=== PATIENT | male | born 1960 | race Caucasian/White ===

== ENCOUNTER 2020-04-10 13:49 | Emergency (ER) | payer OTHER, SELFPAY ==
--- NOTE | ~2020-04-10 | XR_ITS ---
EXAMINATION: XR ankle RT min 3V DATE: 04/10/2020 14:09 INDICATION: Right ankle pain and difficulty bearing weight post injury one day prior TECHNIQUE: Anteroposterior, oblique, mortise, and lateral views of the right ankle were obtained. COMPARISON: None. FINDINGS: Alignment is normal. No fracture. Joint spaces are well maintained. No ankle joint effusion. Diffus e soft tissue swelling about the right ankle. Likely small ankle joint effusion with increased densit y anterior to the tibiotalar joint line. Tiny enthesopathic ossicle at the distal Achilles tendon. IMPRESSION: 1. No acute osseous abnormality. Reviewed, dictated and finalized at location A.
[2020-04-10 14:01] VITALS: BP 160/87; PULSE 72; RESP 24; TEMP 36.9; O2SAT 98
--- NOTE | 2020-04-10 14:36 | ED.LOWEXIN ---
HPI - Extremity Injury (Lower) General Chief Complaint: Extremity Injury, Lower Stated Complaint: R/ankle pain Time Seen by Provider: 04/10/20 14:20 Source: patient and RN notes reviewed Mode of arrival: ambulatory Limitations: no limitations History of Present Illness HPI Narrative: Patient presents today complaining of pain to his right ankle. He jumped off a 1.5 foot high porch yesterday onto a sloped ground, twisting his ankle. He does report some intermittent tingling to the dorsum of the foot. Currently rates pain 9/10 and is been taking ibuprofen and Aleve and applying ice without relief. MD complaint: ankle injury Related Data Home Medications Medication Instructions Recorded Confirmed amlodipine 2.5 mg PO DAILY 04/10/20 04/10/20 atorvastatin 10 mg PO DAILY 04/10/20 04/10/20 furosemide 20 mg PO DAILY 04/10/20 04/10/20 hydralazine 10 mg PO BID 04/10/20 04/10/20 metoprolol succinate 25 mg PO DAILY 04/10/20 04/10/20 warfarin 6 mg PO DAILY 04/10/20 04/10/20 Allergies Allergy/AdvReac Type Severity Reaction Status Date / Time procaine Allergy Unknown HEART Verified 04/10/20 14:06 FLUTTERING Review of Systems Review of Systems: Narrative: CONSTITUTIONAL: Denies body aches, fever, chills, or sweats. EYES: Denies visual changes, redness, or discharge. ENT: Denies rhinorrhea, congestion, sore throat, or otalgia. CARDIOVASCULAR: Denies chest pain, palpitations, or edema. RESPIRATORY: Denies cough or dyspnea. GASTROINTESTINAL: Denies abdominal pain, nausea, vomiting, or diarrhea. GENITOURINARY: Denies dysuria or hematuria. SKIN: Denies rash, itching, or wounds. MUSCULOSKELETAL: Denies back pain, or myalgia.+ Right ankle injury NEUROLOGIC: Denies headache, numbness, tingling, or weakness. PSYCH: Denies depression or anxiety. [facility] Past Medical History Medical History (Updated 04/10/20 @ 14:40 by Karely Mohan, PEGGY, SUDEEP) CHF (congestive heart failure) Hypertension Surgical History Surgical History (Updated 04/10/20 @ 14:37 by Karely Mohan, PEGGY, BC) History of heart valve repair Comments At time of signature, I have reviewed and agree with nursing past medical, surgical, social and family history unless otherwise noted. Please see nursing chart for further information. There is no relevant family history pertinent to the presenting complaint Exam Narrative: Exam Narrative: GENERAL: Well-appearing, well-nourished, and in no acute distress. HEAD: Normocephalic, atraumatic. EYES: EOMI. No redness or drainage. Conjunctivae normal. ENT: Mucous membranes pink and moist. NECK: Normal AROM. CHEST: No respiratory distress. EXTREMITIES: Right ankle: No tenderness to the lateral malleolus or Achilles tendon. Mild tenderness to the medial malleolus. Significant tenderness to the anterior soft tissue of the ankle with moderate edema. No deformity. Distal sensation intact. Capillary refill normal. Pedal pulse normal. Range of motion limited due to pain. SKIN: Warm, dry, no rash. Capillary refill normal. Normal skin turgor. NEURO: No focal deficits. Alert and oriented x3. Ambulating with crutches PSYCH: Normal affect. No signs of depression or anxiety. Course Vital Signs Vital signs: Vital Signs Temperature 98.4 F 04/10/20 14:01 Pulse Rate 72 04/10/20 14:01 Respiratory Rate 24 H 04/10/20 14:01 Blood Pressure 160/87 H 04/10/20 14:01 Pulse Oximetry 98 04/10/20 14:01 Temperature 98.4 F 04/10/20 14:01 Pulse Rate 72 04/10/20 14:01 Respiratory Rate 24 H 04/10/20 14:01 Blood Pressure 160/87 H 04/10/20 14:01 Pulse Oximetry 98 04/10/20 14:01 Reviewed. Pt has been instructed to follow up with his PCP regarding his elevated blood pressure today. MDM - Extremity Injury (Lower) Differential Diagnosis Differential diagnosis: Likely ankle sprain and strain and ankle fracture Imaging Data Radiologist's impression: ITS Impressions Ankle X-Ray 04/10/20 14:2
== END 2020-04-10 14:55 | disposition home or self-care (01) ==
PROVIDERS: Emergency Provider Nurse Practitioner
DX: S93.401A Sprain of unspecified ligament of right ankle, initial encounter (principal); W17.89XA Other fall from one level to another, initial encounter; I11.0 Hypertensive heart disease with heart failure; I50.9 Heart failure, unspecified; E78.00 Pure hypercholesterolemia, unspecified
CPT/HCPCS: 73610; 99213; G0463